=== PATIENT | male | born 1945 | race Caucasian/White ===

== ENCOUNTER → 2023-04-21 | Outpatient (CLI) | payer MEDICARE ==
[~2023-04-21] MED LIST: OXYC1TAB11 PO
--- NOTE | 2023-04-21 14:52 | Diagnostic Imaging Report ---
EXAMINATION: Left shoulder 2 or more views HISTORY: Shoulder pain COMPARISON: 03/28/2023 FINDINGS: There is unchanged alignment of an inferior glenoid fracture. No dislocation. 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 No new fracture. IMPRESSION: 1. Unchanged alignment of a fracture of the inferior left glenoid. Dictated by: Dictated on workstation # [id number]
== END ==
LOC: RAD FS 13:09
PROVIDERS: ATTEND Orthopaedic Surgery
DX: M25.512 Pain in left shoulder (principal)
CPT/HCPCS: 73030